=== PATIENT | female | born 1955 | race Caucasian/White ===

== ENCOUNTER → 2017-06-19 | Outpatient (CLI) | payer BC ==
--- NOTE | 2017-06-20 13:58 | MAMMOGRAPHY REPORT ---
BILATERAL DIGITAL SCREENING MAMMOGRAM TOMOSYNTHESIS WITH CAD: 06/19/2017 CLINICAL HISTORY: Routine screening. Patient has no complaints. TECHNIQUE: Breast tomosynthesis in addition to standard 2D mammography was performed. Current study was also evaluated with a Computer Aided Detection (CAD) system. COMPARISON: Comparison is made to exams dated: 09/28/2014 mammogram, 09/14/2013 mammogram, and 2011 mammogram - [facility]. BREAST COMPOSITION: The tissue of both breasts is extremely dense, which lowers the sensitivity of m ammography. FINDINGS: There are coarse calcifications in both breasts. There are diffuse bilateral grouped punct ate microcalcifications most numerous in the superior aspect of the left breast. No new suspicious m ass, architectural distortion or cluster of microcalcifications is seen. IMPRESSION: ACR BI-RADS CATEGORY 1: NEGATIVE There is no mammographic evidence of malignancy. A 1 year screening mammogram is recommended. The pa tient will receive written notification of the results. Approximately 10% of breast cancers are not detected with mammography. A negative mammographic report should not delay biopsy if a clinically suggestive mass is present. Dedra Burns M.D. ay/:06/19/2017 16:36:36 Configuration Management Analyst: Betzaida FLORIAN(Becca)(Johnie)([place]), [facility] letter sent: Normal 1/2 BI-RADS Code: ACR BI-RADS Category 1: Negative
== END | disposition home or self-care (01) ==
LOC: C.MAMM 15:24
PROVIDERS: ATTEND Physician Assistant
DX: Z12.31 Encounter for screening mammogram for malignant neoplasm of breast (principal)

== ENCOUNTER 2017-09-28 19:37 | Emergency (ER) | payer BC ==
[~2017-09-28] VITALS: Ht 165.1 cm; Wt 62.1 kg
[2017-09-28 19:42] VITALS: TEMP 37; Ht 165.1 cm; Wt 62.1 kg
--- NOTE | 2017-09-28 20:11 | DIAGNOSTIC IMAGING REPORT ---
L ANKLE MIN 3 VIEWS ROUTINE HISTORY: 62 years-old Female left ankle injury acute left ankle pain status post trauma COMPARISON: Left foot radiographs 11/07/2011 TECHNIQUE: 3 views of the left ankle FINDINGS: There is moderate anterolateral soft tissue swelling about the ankle. Round radiodensities within the distal pretibial tissues suggest venous calcifications. There is no acute fracture, dislocation or osteochondral defect identified. First MTP joint arthroplasty again noted. IMPRESSION: Moderate anterolateral soft tissue swelling without acute bony abnormality identified. The above report was generated using voice recognition software. It may contain grammatical, syntax or spelling errors. Electronically signed by: Noah Duran M.D. 09/28/2017 8:09 PM Dictated Date/Time: 09/28/2017 8:07 PM
[2017-09-28] MEDS ORDERED: ESCI10TA17 PO (20:17)
--- NOTE | 2017-09-28 20:29 | EMERGENCY ROOM VISIT NOTE ---
History First contact with patient: 19:44 Chief Complaint: ANKLE PAIN Stated Complaint: BROKEN ANKLE History of Present Illness The patient is a 62 year old female who presents to the Emergency Room with complaints of an injury to her left ankle. The patient reports that she was carrying boxes down steps when she steps down and the left ankle, striking the ankle on the concrete ground. She rates her discomfort a 7/10. She states the pain is located in the outside of the ankle and across the front of the ankle. She reports previous surgery on this foot, but denies any previous injuries to the ankle. She denies any pain of the upper leg or foot. She denies any numbness or weakness. She has not taken any medication at home for her pain. Review of Systems A 6 point review of systems was reviewed with the patient with pertinent positives and negatives as per history of present illness. All else were negative. Social History Smoking Status: Never Smoker Current/Historical Medications Scheduled Escitalopram (Lexapro), 10 MG PO DAILY Physical Exam Vital Signs Date Time Temp Pulse Resp B/P (MAP) Pulse Ox O2 Delivery O2 Flow Rate FiO2 09/28/17 20:36 84 18 154/79 99 09/28/17 19:42 37.0 82 18 174/82 98 Room Air Physical Exam VITALS: Vitals are noted on the nurse's note and reviewed by myself. Vital signs stable. GENERAL: This is a 62-year-old female, in no acute distress, nondiaphoretic, well-developed well-nourished. SKIN: Capillary refill less than 2 seconds. MUSCULOSKELETAL: There is moderate edema over the lateral and anterior aspects of the left ankle. There is tenderness over the lateral malleolus. There is no tenderness over the medial malleolus, foot or proximal tibia/fibula. Normal plantarflexion and dorsiflexion of the ankle. Capillary refill within 2 seconds. Dorsalis pedis pulse 2+. NEURO: Patient was alert and oriented to person place and time. Normal sensation over the left lower extremity. Medical Decision & Procedures ER Provider Diagnostic Interpretation: L ANKLE MIN 3 VIEWS ROUTINE FINDINGS: There is moderate anterolateral soft tissue swelling about the ankle. Round radiodensities within the distal pretibial tissues suggest venous calcifications. There is no acute fracture, dislocation or osteochondral defect identified. First MTP joint arthroplasty again noted. IMPRESSION: Moderate anterolateral soft tissue swelling without acute bony abnormality identified. Medical Decision Differential diagnosis includes ankle fracture, foot fracture, contusion, fracture dislocation, among others. The patient was evaluated as above. X-rays left ankle shows soft tissue swelling without acute fracture. Patient was placed in a gel splint. She has crutches at home and was instructed to use these. She has seen orthopedics in the past and was instructed to follow-up with them if she develops worsening pain or symptoms persist. She verbalized understanding of my assessment and treatment plan and was discharged home in good condition. Medication Reconcilliation Current Medication List: was personally reviewed by me Blood Pressure Screening Patient's blood pressure: Elevated blood pressure Blood pressure disposition: Elevated BP felt to be situational Impression Primary Impression: Left ankle sprain Departure Information Dispostion Home / Self-Care Condition GOOD Referrals No Doctor, Assigned (PCP) Patient Instructions My [facility] Additional Instructions You have been treated in the Emergency Department for an Ankle sprain. For pain control, you can use the following [id number] medicines (if >12 yo): - Regular strength (325mg/tab) Tylenol (acetaminophen) 2 tabs every 4-6 hours as needed. Do not exceed 12 tablets in a 24 hour period. Avoid taking more than 4 grams (4000 mg) of Tylenol per day. This includes any other sources of acetaminophen you may take on a regular basis. - Regular strength (200 mg/tab) Advil (ibuprofen) 1-2 tabs every 4-6 hours as needed. Do not exceed a dose of 3200 mg per day. If this is a recent injury (<24 hrs), ice can be applied to the area of pain for the first 3 days to help decrease pain and inflammation. Keep the ankle brace/splint in place and use the crutches you have been provided to keep weight off of the ankle until weight bearing is tolerable. If you're not having improvement of your symptoms in 5-6 days, you should call orthopedics to schedule a follow-up appointment. Return to the Emergency Department if your current symptoms worsen despite treatment course outlined above, or if you develop any of the following symptoms : intractable pain despite aforementioned treatment course or new onset of numbness or tingling of the foot. Problem Qualifiers Primary Impression: Left ankle sprain Encounter type: initial encounter Involved ligament of ankle: unspecified ligament Qualified Codes: S93.402A - Sprain of unspecified ligament of left ankle, initial encounter
[2017-09-28 20:36] VITALS: BP 154/79; PULSE 84; O2SAT 99
== END 2017-09-28 20:37 | disposition home or self-care (01) ==
LOC: C.EDB 19:39 → C.EDD 20:37
DX: S93.402A Sprain of unspecified ligament of left ankle, initial encounter (principal); W10.9XXA Fall (on) (from) unspecified stairs and steps, initial encounter; R03.0 Elevated blood-pressure reading, without diagnosis of hypertension

== ENCOUNTER → 2017-12-09 | Outpatient (CLI) | payer BC ==
[~2017-12-09] MED LIST: ESCI10TA17 PO
[2017-12-09 15:26] LABS: BLOOD UREA NITROGEN 14 mg/dl (7-18); CREATININE 0.83 mg/dl (0.60-1.20)
== END | disposition home or self-care (01) ==
LOC: C.LAB 14:46
PROVIDERS: ATTEND Podiatrist Foot & Ankle Surgery
DX: Z01.812 Encounter for preprocedural laboratory examination (principal)

== ENCOUNTER → 2017-12-11 | Outpatient (CLI) | payer BC ==
[~2017-12-11] MED LIST changes: +GADAVIST IV PRN
--- NOTE | 2017-12-11 12:41 | DIAGNOSTIC IMAGING REPORT ---
MRI OF THE LEFT ANKLE WITH AND WITHOUT CONTRAST CLINICAL HISTORY: Left ankle pain. Possible syndesmotic rupture. COMPARISON STUDY: Left ankle radiographs October 08, 2017. TECHNIQUE: Utilizing a 1.5 Luz Maria magnet and dedicated coil, multiplanar, multiecho imaging of the left ankle was performed pre and postcontrast administration. Injection of 5.5 cc of Gadavist IV was uneventful. FINDINGS: Alignment of the left ankle is anatomic. Talar dome is intact. There is no osteochondral lesion. There is no fracture or suspicious marrow replacement. 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 There is a small tibiotalar joint effusion. The flexor, extensor and peroneal tendons appear intact. The anterior talofibular ligament appears intact. There is thickening of the anterior inferior tibiofibular ligament. The anterior inferior posterior tibiofibular ligament appears intact. There is intermediate signal and thickening of the calcaneofibular ligament. Deltoid appears intact. Susceptibility artifact from a right first metatarsophalangeal joint arthroplasty is noted on the asphalt paving superintendent images. Achilles tendon is intact. No significant fluid within the syndesmosis. IMPRESSION: 1. Findings suggestive of grade I sprains of the anterior tibiofibular and calcaneofibular ligaments. No evidence for a full-thickness syndesmotic tear. 2. No fracture. 3. Small tibiotalar joint effusion. Electronically signed by: Nando Srivastava M.D. 12/11/2017 12:39 PM Dictated Date/Time: 12/11/2017 12:23 PM
== END | disposition home or self-care (01) ==
LOC: C.MRI 10:59
PROVIDERS: ATTEND Podiatrist Foot & Ankle Surgery
DX: S93.412A Sprain of calcaneofibular ligament of left ankle, initial encounter (principal); S93.492A Sprain of other ligament of left ankle, initial encounter; X58.XXXA Exposure to other specified factors, initial encounter